=== PATIENT | female | born 2000 | race Caucasian/White ===

== ENCOUNTER 2019-08-06 11:15 | Outpatient (CLI) | payer OTHER ==
--- NOTE | 2019-08-06 12:01 | RAD ---
Lumbar spine: 3 views INDICATIONS:Back pain. Disability exam. COMPARISON:None FINDINGS: Vertebral bodies maintain normal height. Disc spaces of lumbar spine maintain normal height. There is slight scoliotic curvature to the left in the upper lumbar spine with apex at L2-3. Postoperative changes noted in the lower thoracic and upper lumbar spine with pedicle screws seen at T11, T12, and L1. No soft tissue abnormality. IMPRESSION: Postoperative changes in the lower thoracic and upper lumbar spine. Slight curvature of the lumbar sp ine.
== END 2019-08-06 11:16 | disposition home or self-care (01) ==
LOC: BICRAD 11:15
PROVIDERS: ATTEND Internal Medicine
DX: Z02.71 Encounter for disability determination (principal)
CPT/HCPCS: 72100